=== PATIENT | female | born 1965 | race Hispanic/Latino ===

== ENCOUNTER 2017-02-21 08:09 | Observation (INO) | payer OTHER ==
[2017-02-21 08:10] VITALS: BMI 26.6
[2017-02-21 08:28] VITALS: TEMP 98.3
--- NOTE | 2017-02-21 09:02 | ED PDOC ---
Arrival/HPI - General Chief Complaint: Syncope Time Seen by Provider: 02/21/17 08:44 Historian: Patient - History of Present Illness Narrative History of Present Illness (Text): 02/21/17 09:02 A 51 year old female presents to the emergency department complaining of sinus infection. Patient reports sinus congestion and yellow rhinorrhea for the past 3 days. She states this morning while bending down to tie her shoe she got up and felt dizzy with episode of palpitation/sharp chest pain, that resolved itself shortly after. She reports that she felt lightheaded but did not have syncope. Patient notes a headache but denies any fever, nausea, vomiting, diarrhea, abdominal pain, urinary symptoms, chest pain, shortness of breath or any other complaints. PMD: Dr. Castano 02/21/17 17:06 Time/Duration: Prior to Arrival Symptom Course: Unchanged Quality: Other Context: Home Past Medical History - Provider Review Nursing Documentation Reviewed: Yes - Infectious Disease Hx of Infectious Diseases: None - Tetanus Immunization Tetanus Immunization: Unknown - Past Medical History Past Medical History: No Previous - Cardiac Hx Hypertension: Yes - Psychiatric Hx Psychophysiologic Disorder: No Hx Depression: No Hx Emotional Abuse: No Hx Physical Abuse: No Hx Substance Use: Yes - Surgical History Hx Hysterectomy: Yes (PARTIAL) Hx Orthopedic Surgery: Yes (right knee) 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 - Anesthesia Hx Anesthesia: Yes Hx Anesthesia Reactions: No - Suicidal Assessment Feels Threatened In Home Enviroment: No Family/Social History - Physician Review Nursing Documentation Reviewed: Yes Family/Social History: No Known Family HX Smoking Status: Heavy Smoker > 10 Cigarettes Daily Hx Alcohol Use: Yes Frequency of alcohol use: Socially Hx Substance Use: Yes Substance used: Marijuana Hx Substance Use Treatment: No Allergies/Home Meds Allergies/Adverse Reactions: Allergies ciprofloxacin [From Cipro] Allergy (Verified 11/15/16 07:31) RASH ciprofloxacin HCl [From Cipro] Allergy (Verified 11/15/16 07:31) RASH levofloxacin [From Levaquin] Allergy (Verified 11/15/16 07:31) RASH Penicillins Allergy (Verified 11/15/16 07:31) ANAPHYLAXIS Sulfa (Sulfonamide Antibiotics) Allergy (Verified 11/15/16 07:31) RASH Home Medications: Home Meds Medication Instructions Recorded Confirmed ALPRAZolam [Xanax] 1 tab PO DAILY PRN 02/21/17 02/21/17 Review of Systems - Physician Review All systems were reviewed & negative as marked: Yes - Review of Systems Constitutional: absent: Fatigue, Fevers, Night Sweats Eyes: absent: Vision Changes ENT: Rhinorrhea, Sinus Congestion. absent: TMJ Pain, Voice Changes, Sore Throat Respiratory: absent: SOB, Cough, Sputum, Wheezing Cardiovascular: Chest Pain. absent: Palpitations, Edema, Calf Pain, Orthopnea, Syncope Gastrointestinal: absent: Abdominal Pain, Constipation, Diarrhea, Nausea, Vomiting Genitourinary Female: absent: Dysuria, Frequency, Hematuria, Urine Output Changes Musculoskeletal: absent: Arthralgias Neurological: Headache, Dizziness. absent: Focal Weakness, Gait Changes, Speech Changes, Facial Droop, Disequilibrium, Seizure Physical Exam Vital Signs Reviewed: Yes Vital Signs Temp Pulse Resp BP Pulse Ox 02/21/17 12:44 72 14 138/81 97 02/21/17 12:00 115 H 20 98 02/21/17 08:27 98.3 F 104 H 18 159/71 H 100 Temperature: Afebrile Blood Pressure: Hypertensive Pulse: Regular Respiratory Rate: Normal Appearance: Positive for: Well-Appearing, Non-Toxic, Comfortable Pain Distress: None Mental Status: Positive for: Alert and Oriented X 3 Finger Stick Blood Glucose: 90 - Systems Exam Head: Present: Atraumatic, Tenderness (Frontal sinus tenderness to palpation) Pupils: Present: PERRL Extroacular Muscles: Present: EOMI Conjunctiva: Present: Normal Ears: Present: Normal, NORMAL TM, Normal Canal, Other (Posterior auricular LN swelling). No: Erythema, TM Bulging, Fluid, TM Perf Mouth: Present: Moist Mucous Membranes Pharnyx: Present: Normal. No: ERYTHEMA, EXUDATE, TONSILS ENLARGED, Peritonsilar Swelling, Uvular Deviation, Muffled/Hoarse Voice, Strider, Soft Palate/Uvular Edema Neck: Present: Normal Range of Motion. No: Meningeal Signs Respiratory/Chest: Present: Clear to Auscultation, Good Air Exchange. No: Respiratory Distress, Accessory Muscle Use Cardiovascular: Present: Regular Rate and Rhythm, Normal S1, S2. No: Murmurs Abdomen: Present: Normal Bowel Sounds. No: Tenderness, Distention, Peritoneal Signs Back: Present: Normal Inspection Upper Extremity: Present: Normal Inspection. No: Cyanosis, Edema Lower Extremity: Present: Normal Inspection. No: Edema Neurological: Present: GCS=15, CN II-XII Intact, Speech Normal Skin: Present: Warm, Dry, Normal Color. No: Rashes Psychiatric: Present: Alert, Oriented x 3, Normal Insight, Normal Concentration Medical Decision Making ED Course and Treatment: 02/21/17 09:02 Impression: A 51 year old female with complaint of yellow nasal discharge and sinus pressure. Also complaining of isolated episode of dizziness and chest pain that has now resolved. She has no cardiac risk factors and this is an atypical presentation for cardiac chest pain. More likely normal heart rate changes after orthostatic episode. She has a normal ekg and is low risk. Due to episode of chest pain happening at 7am, will get 2 set of CE to r/o. Patient aware that she needs to follow-up with cardiology within 2 days. Differential Diagnosis included but are not limited to: Plan: -- Chest xray -- EKG -- Labs -- Doryx, Antivert and IV fluids -- Reassess and disposition 02/21/17 12:07 Cxray negative. Trop x 1 negative. D-dimer negative. Feels better after medication. Pending 2nd set 02/21/17 14:03 Repeat ekg shows NSR at 63bpm with normal intervals and no st changes. Unchanged from prior at 8:20 (6 hours ago) 02/21/17 15:20 2nd set of troponin 02/21/17 17:07 - Lab Interpretations I have reviewed the lab results: Yes - RAD Interpretation Radiology Orders: 02/21/17 09:04 CHEST PORTABLE [RAD] Stat - Medication Orders Current Medication Orders: Discontinued Medications Doxycycline Hyclate (Doryx) 100 mg PO STAT STA PRN Reason: Protocol Stop: 02/21/17 09:05 Last Admin: 02/21/17 09:30 Dose: 100 mg Sodium Chloride (Sodium Chloride 0.9%) 500 mls @ 999 mls/hr IV .Q31M STA Stop: 02/21/17 09:43 Last Admin: 02/21/17 09:34 Dose: 999 mls/hr Ketorolac Tromethamine (Toradol) 30 mg IVP STAT STA Stop: 02/21/17 10:31 Last Admin: 02/21/17 11:05 Dose: 30 mg Meclizine HCl (Antivert) 50 mg PO STAT STA Stop: 02/21/17 09:05 Last Admin: 02/21/17 09:30 Dose: 50 mg ED OBSERVATION Discharge: Yes Date of observation admission: 02/21/17 Time of observation admission: 09:09 - Observation admission statement Patient is being placed in observation because:: Dizziness and near-syncope, resolved left chest pain - Goals of Observation Goals of observation are:: Monitor and treat patients symptoms - Progress Note Progress Note: 02/21/17 09:09 Patient with dizziness and near-syncope. Patient notes sinus congestion. Chest xray, EKG and labs ordered. Will re-evaluate after medication administered. EKG shows NSR at [address]/T changes, normal intervals. Interpreted by me. 02/21/17 11:00 Patient resting comfortably, in no acute distress. Report Date : 02/21/2017 11:13:55 Procedure: Chest xray Dictator : David Gutierrez MD IMPRESSION: No active disease. 02/21/17 13:00 Patient resting comfortably, with no new complaints. 02/21/17 15:00 Patient resting comfortably, in no acute distress. - Scribe Statement The provider has reviewed the documentation as recorded by the Apurva France Provider Scribe Attestation: All medical record entries made by the Scribe were at my direction and personally dictated by me. I have reviewed the chart and agree that the record accurately reflects my personal performance of the history, physical exam, medical decision making, and the department course for this patient. I have also personally directed, reviewed, and agree with the discharge instructions and disposition. Disposition/Present on Arrival - Present on Arrival Any Indicators Present on Arrival: No History of DVT/PE: No History of Uncontrolled Diabetes: No Urinary Catheter: No History of Decub. Ulcer: No History Surgical Site Infection Following: None - Disposition Have Diagnosis and Disposition been Completed?: Yes Diagnosis: Sinusitis, Chest pain Disposition: HOME/ ROUTINE Disposition Time: 09:09 Patient Plan: Discharge Condition: GOOD
[2017-02-21] MEDS ORDERED: Sodium Chloride 0.9% 500 ML IV STA (09:13)
[2017-02-21 09:35] LABS: ADD MANUAL DIFF? NO
[2017-02-21 09:38] LABS: BASO # 0.01 K/mm3 (0.0-2.0); BASO % 0.1 % (0.0-3.0); EOS # 0.1 (0.0-0.7); EOS % 0.6 % (1.5-5.0); GRAN # 8.89 (1.4-6.5); GRAN % 73.3 % (50.0-68.0); HEMATOCRIT 44.2 % (36.0-48.0); LYMPH # 2.3 (1.2-3.4); LYMPH % 19.2 % (22.0-35.0); MEAN CELL VOLUME 85.7 fL (80.0-105.0); MEAN CORPUSCULAR HEMOGLOBIN 28.9 pg (25.0-35.0); MEAN CORPUSCULAR HGB CONC 33.7 g/dl (31.0-37.0); MEAN PLATELET VOLUME 10.7 fl (7.0-11.0); MONO # 0.8 (0.1-0.6); MONO % 6.8 % (1.0-6.0); PLATELET COUNT 239 10^3/uL (120.0-450.0); RED CELL DISTRIBUTION WIDTH 14.4 % (11.5-14.5); WHITE BLOOD COUNT 12.1 10^3/ul (4.5-11.0)
[2017-02-21 09:48] LABS: BLOOD UREA NITROGEN 14 mg/dL (7-21); CALCIUM 9.8 mg/dL (8.4-10.5); CARBON DIOXIDE 26 mmol/L (21-33); CHLORIDE 101 mmol/L (98-107); GFR AFRICAN-AMERICAN > 60; GLUCOSE,RANDOM 77 mg/dL (70-110); SODIUM 137 mmol/L (132-148)
[2017-02-21 10:01] LABS: TROPONIN I < 0.01 ng/mL
--- NOTE | 2017-02-21 10:12 | CARD ---
APPROVED REPORT EKG Measurement Heart [id number] <Conclusion> Normal sinus rhythm Normal ECG
--- NOTE | 2017-02-21 11:15 | RAD ---
HISTORY: chest pain COMPARISON: 03/03/2015 FINDINGS: LUNGS: No active pulmonary disease. PLEURA: No significant pleural effusion identified, no pneumothorax apparent. CARDIOVASCULAR: Normal. OSSEOUS STRUCTURES: No significant abnormalities. VISUALIZED UPPER ABDOMEN: Normal. OTHER FINDINGS: None. IMPRESSION: No active disease.
[2017-02-21 12:45] VITALS: BP 138/81; PULSE 72; RESP 14; O2SAT 97
[2017-02-21 15:14] LABS: TROPONIN I < 0.01 ng/mL
--- NOTE | 2017-02-21 15:18 | CARD ---
APPROVED REPORT EKG Measurement Heart [id number] <Conclusion> Normal sinus rhythm Normal ECG
== END 2017-02-21 15:21 | disposition home or self-care (01) ==
LOC: ED 08:09 → EROBSV 09:09
PROVIDERS: ADMIT Emergency Medicine; ATTEND Emergency Medicine
DX: R07.9 Chest pain, unspecified (principal); J32.9 Chronic sinusitis, unspecified
CPT/HCPCS: 71010; 80048; 82550; 84484; 85025; 85378; 93005; 96374; 99285; G0378; J1885; J7040